=== PATIENT | male | born 1965 | race Caucasian/White ===

== ENCOUNTER 2021-06-29 23:58 | Inpatient (IN) | payer OTHER, SELFPAY ==
[~2021-06-29 23:58] MED LIST: Bacitracin Zinc Ointment 30 gm TUBE ONE; Bupivacaine PF 0.5% 30 ML VIAL ONE; Communication Order-Pharmacy FS PRN; Dexamethasone 20 MG/5 ML VIAL ONE; Fentanyl 100 MCG/2 ML VIAL ONE; Ketorolac Tromethamine 30 MG/ML VIAL IVP PRN; Lidocaine 1% PF 5 ML VIAL ONE; Meperidine HCl/PF 25 MG/ML VIAL IM PRN; Midazolam HCl 2 mg/2 ml Vial ONE; Morphine 4 MG/ML VIAL SLOW IVP PRN; Neomycin-Polymyxin 1 ML AMP ONE; Ondansetron HCl/PF 4 MG/2 ML Vial IVP PRN; Ondansetron PF 4 MG/2 ML Vial ONE; Ondansetron PF 4 MG/2 ML Vial SLOW IVP PRN; PROPOFOL 200 MG/20 ML VIAL ONE; Promethazine HCl 25 MG/ML VIAL IVPB PRN; Sodium Chloride 0.9% 10 ML ONE; TETANUS AND DIPHTHERIA TOX/PF 0.5 ML DISP.SYRIN IM SCH; Thrombin 5000 UNITS/5 ML VIAL ONE
[2021-06-30 00:14] VITALS: BMI 31.2
[2021-06-30 00:55] LABS: #Eosinphils 0.1 thou/uL (0.0-0.7); #Lymphocytes 0.9 thou/uL (1.20-3.40); #Monocytes 0.3 thou/uL (0.11-0.59); #Neutrophils 11.7 thou/uL (1.40-6.50); %Basophils 0.3 % (0.0-1.0); %Eosinophils 0.5 % (0.0-10.0); %Lymphocytes 6.6 % (21.0-51.0); %Monocytes 2.2 % (0.0-10.0); %Neutrophils 90.5 % (42.0-75.0); Hemoglobin 13.5 g/dL (14.0-18.0); Mean Corpuscular HGB CONC 33.8 g/dL (32.0-36.0); Mean Corpuscular Hemoglobin 29.8 pg (27.0-31.0); Mean Corpuscular Volume 88.1 fL (78.0-98.0); Mean Platelet Volume 8.1 fL (7.4-10.4); Platelet Count 237 thou/uL (130-400); Red Blood Cell (RBC) Count 4.52 mill/uL (4.70-6.10); White Blood Cell (WBC) Count 12.9 thou/uL (4.8-10.8)
[2021-06-30] MEDS: Sodium Chloride 0.9% 100 ML IV SCH ×13 (04:17→23:15)
[2021-06-30] MEDS: HYDROcodone/Acetaminophen 5/325 mg Tablet PO PRN ×3 (05:54→21:52)
[2021-06-30 06:11] LABS: Calc. Creatinine Clearance 123 mL/min (70-130)
[2021-06-30] MEDS: Aspirin 81 mg Enteric Coated Tablet PO SCH ×2 (08:07→20:52)
[2021-06-30] MEDS: VANCOMYCIN 1.25 GM/250 ML BAG 1.25 GM in Premix Bag 1 BAG IVPB SCH ×2 (08:07→20:52)
[2021-06-30] MEDS ORDERED: cloNIDine 0.1 MG TAB PO PRN ×2 (08:34→19:56)
[2021-06-30] MEDS ORDERED: Vancomycin 1 GM in Premix Bag 1 BAG IVPB SCH (09:00)
[2021-06-30] MEDS: Famotidine 20 MG TAB PO SCH ×2 (11:55→20:52)
[2021-06-30] MEDS ORDERED: Morphine 4 MG/ML VIAL SLOW IVP PRN (21:32)
[2021-06-30] MEDS ORDERED: Meperidine HCl/PF 25 MG/ML VIAL IM PRN (21:33)
[2021-07-01] MEDS: Sodium Chloride 0.9% 100 ML IV SCH ×3 (01:32→03:48)
[2021-07-01] MEDS ORDERED: Sodium Chloride 0.9% 1,000 ML IV SCH (04:00)
[2021-07-01 05:46] LABS: #Basophils 0.1 thou/uL (0.0-0.2); #Eosinphils 0.2 thou/uL (0.0-0.7); #Lymphocytes 1.8 thou/uL (1.20-3.40); #Neutrophils 6.2 thou/uL (1.40-6.50); %Basophils 0.5 % (0.0-1.0); %Eosinophils 2.3 % (0.0-10.0); %Lymphocytes 19.1 % (21.0-51.0); %Monocytes 10.8 % (0.0-10.0); %Neutrophils 67.4 % (42.0-75.0); Hemoglobin 13.1 g/dL (14.0-18.0); Mean Corpuscular HGB CONC 31.5 g/dL (32.0-36.0); Mean Corpuscular Hemoglobin 28.5 pg (27.0-31.0); Mean Corpuscular Volume 90.4 fL (78.0-98.0); Mean Platelet Volume 8.3 fL (7.4-10.4); Platelet Count 214 thou/uL (130-400); RBC Distribution Width 12.1 % (11.5-14.5); Red Blood Cell (RBC) Count 4.62 mill/uL (4.70-6.10); White Blood Cell (WBC) Count 9.2 thou/uL (4.8-10.8)
[2021-07-01] MEDS: HYDROcodone/Acetaminophen 5/325 mg Tablet PO PRN (07:22)
[2021-07-01] MEDS: Aspirin 81 mg Enteric Coated Tablet PO SCH (07:22)
[2021-07-01] MEDS: Famotidine 20 MG TAB PO SCH (07:22)
[2021-07-01] MEDS ORDERED: hydrALAZINE 20 MG/ML VIAL SLOW IVP PRN (08:02)
[2021-07-01] MEDS ORDERED: Ondansetron ODT 4 MG TAB PO PRN (08:02)
[2021-07-01] MEDS ORDERED: GUAIFENESIN SF SOLN 200 MG/10 ML UDCUP PO PRN (08:02)
[2021-07-01] MEDS ORDERED: Cepastat Lozenges 1 LOZ PO PRN (08:02)
[2021-07-01] MEDS ORDERED: Loratadine 10 MG TAB PO PRN (08:02)
[2021-07-01] MEDS ORDERED: Bisacodyl 5 MG TAB PO PRN (08:02)
[2021-07-01] MEDS ORDERED: Hydrocerin (Eucerin) Cream 120 gm Jar TOP PRN (08:02)
[2021-07-01] MEDS ORDERED: Senokot S 8.6-50 MG TAB PO PRN (08:02)
[2021-07-01] MEDS ORDERED: Artificial Tear Sol 15 ML BOT EA EYE PRN (08:02)
[2021-07-01] MEDS ORDERED: Calcium Carbonate 500 MG ChewTAB PO PRN (08:02)
[2021-07-01] MEDS ORDERED: Zolpidem Tartrate 5 MG TAB PO PRN (08:02)
[2021-07-01] MEDS ORDERED: Loperamide HCl 2 MG CAP PO PRN (08:02)
[2021-07-01] MEDS ORDERED: Sodium Chloride 0.65% Nasal 44 ML BOT EA NARE PRN (08:02)
[2021-07-01] MEDS: VANCOMYCIN 1.25 GM/250 ML BAG 1.25 GM in Premix Bag 1 BAG IVPB SCH (09:37)
[2021-07-01 11:32] VITALS: BP 128/86; TEMP 98.6
== END 2021-07-01 16:00 | disposition home or self-care (01) | DRG 42 ==
LOC: SDC 23:58 → SURG B 06-30 00:01
PROVIDERS: ADMIT Orthopaedic Surgery Hand Surgery; ATTEND Orthopaedic Surgery Hand Surgery
PROC: 01Q60ZZ Repair Radial Nerve, Open Approach (ICD-10-PCS; principal; 2021-06-29)
PROC: 0PBV0ZZ Excision of Left Finger Phalanx, Open Approach (ICD-10-PCS; 2021-06-29)
DX: S64.22XA Injury of radial nerve at wrist and hand level of left arm, initial encounter (principal); S61.237A Puncture wound without foreign body of left little finger without damage to nail, initial encounter; Z20.822 Contact with and (suspected) exposure to COVID-19; K21.9 Gastro-esophageal reflux disease without esophagitis; I10 Essential (primary) hypertension; E66.9 Obesity, unspecified; Z68.31 Body mass index [BMI] 31.0-31.9, adult; W34.00XA Accidental discharge from unspecified firearms or gun, initial encounter
CPT/HCPCS: 36415; 76000; 82565; 85025; J0690; J1100; J2250; J2405; J2704; J3010; J3370; S0020

== ENCOUNTER 2021-07-10 09:14 | Day surgery (SDC) | payer OTHER ==
[2021-07-08 13:58] VITALS: BMI 27.3
[2021-07-10] MEDS ORDERED: Fentanyl 250 MCG/5 ML VIAL ONE (17:39)
[2021-07-10] MEDS ORDERED: Bupivacaine PF 0.5% 30 ML VIAL ONE (17:40)
[2021-07-10] MEDS ORDERED: Bacitracin Zinc Ointment 30 gm TUBE ONE (17:40)
[2021-07-10] MEDS ORDERED: Dexamethasone 20 MG/5 ML VIAL ONE (17:49)
[2021-07-10] MEDS ORDERED: Lidocaine 1% PF 5 ML VIAL ONE (17:49)
[2021-07-10] MEDS ORDERED: PROPOFOL 200 MG/20 ML VIAL ONE (17:49)
[2021-07-10] MEDS ORDERED: Ketorolac Tromethamine 30 MG/ML VIAL ONE ×2 (17:49→21:35)
[2021-07-10] MEDS ORDERED: Ondansetron PF 4 MG/2 ML Vial ONE (17:49)
[2021-07-10] MEDS ORDERED: PHENYLEPHRINE-NS 100 MCG/ML 10 ML SYRINGE ONE (17:49)
[2021-07-10] MEDS ORDERED: Neomycin-Polymyxin 1 ML AMP ONE (18:35)
[2021-07-10] MEDS ORDERED: Mineral Oil Sterile 10 ML VIAL ONE (20:08)
== END 2021-07-10 22:15 | disposition home or self-care (01) ==
LOC: SDC 09:14
PROVIDERS: ATTEND Orthopaedic Surgery Hand Surgery
PROC: 0PSV04Z Reposition Left Finger Phalanx with Internal Fixation Device, Open Approach (ICD-10-PCS; principal; 2021-07-10)
PROC: 0HRGX73 Replacement of Left Hand Skin with Autologous Tissue Substitute, Full Thickness, External Approach (ICD-10-PCS; principal; 2021-07-10)
DX: S62.617B Displaced fracture of proximal phalanx of left little finger, initial encounter for open fracture (principal); W34.00XA Accidental discharge from unspecified firearms or gun, initial encounter
CPT/HCPCS: 76000; 85027; C1713; J0690; J1100; J1885; J2405; J2704; J3010; S0020; U0003; U0005